=== PATIENT | male | born 1960 | race Two or more races ===

== ENCOUNTER → 2019-04-25 | Outpatient (CLI) | payer OTHER ==
--- NOTE | 2019-04-25 13:59 | REP ---
Chest x-ray: Two views. History: Wheezing. Cough. Findings: The lungs are symmetrically aerated. No focal infiltrate is seen. Pleural angles are sharp. Cardiomediastinal silhouette is unremarkable. There are degenerative changes in the thoracic spine. Impression: No active disease. Electronically Signed by Sha Montes MD 04/25/2019 01:51 P
== END ==
LOC: M LRY 13:13
PROVIDERS: ATTEND Physician Assistant
DX: M51.34 Other intervertebral disc degeneration, thoracic region (principal); R06.2 Wheezing; R05 Cough

== ENCOUNTER → 2021-11-07 | Outpatient (REF) | payer OTHER ==
[2021-11-07 17:14] LABS: BASO % 0.2 % (0.0-1.0); EOS % 0.2 % (0.0-3.0); HEMATOCRIT 38.7 % (42.0-52.0); HEMOGLOBIN 12.4 g/dl (13.5-17.5); LYMPH # 0.8 10^3/uL (1.5-5.0); LYMPH % 7.6 % (24.0-44.0); MEAN CORPUSCULAR HEMOGLOBIN 25.2 pg (27.0-33.0); MEAN CORPUSCULAR VOLUME 78.7 fl (80.0-96.0); MONO # 0.2 10^3/uL (0.0-0.8); MONO % 2.4 % (2.0-8.0); PLATELET COUNT, AUTOMATED 236 10^3/uL (150-450); RED BLOOD COUNT 4.92 10^6/uL (4.30-6.10); WHITE BLOOD COUNT 10.1 10^3/uL (4.0-10.0)
[2021-11-07 18:22] LABS: ERYTHROCYTE SEDIMENTATION RATE 16 mm/hr (0-20)
[2021-11-07 19:27] LABS: ALBUMIN 3.1 GM/DL (3.2-5.2); ALT/SGPT 35 U/L (12-78); BILIRUBIN,TOTAL 0.3 MG/DL (0.2-1.0); BLOOD UREA NITROGEN 36 MG/DL (7-18); C REACTIVE PROTEIN QUANTITATIV 1.11 MG/DL (0.00-0.30); CARBON DIOXIDE LEVEL 28 MEQ/L (21-32); CHLORIDE LEVEL 100 MEQ/L (98-107); CREATININE FOR GFR 1.45 MG/DL (0.70-1.30); GLOMERULAR FILTRATION RATE 52.7 (>49); GLUCOSE, FASTING 372 MG/DL (70-100); POTASSIUM SERUM 4.5 MEQ/L (3.5-5.1); SODIUM LEVEL 135 MEQ/L (136-145); TOTAL PROTEIN 6.7 GM/DL (6.4-8.2)
[2021-11-07 20:20] LABS: TOTAL 25(OH) VITAMIN D 15.9 NG/ML (30.0-100.0)
[2021-11-07 20:31] LABS: HEPATITIS B SURFACE ANTIGEN NEGATIVE (NEGATIVE)
[2021-11-07 20:58] LABS: HEPATITIS B CORE ANTIBODY IGM NEGATIVE (NEGATIVE); HEPATITIS C VIRUS ABY INDEX < 0.0 INDEX (<0.8)
[2021-11-10 15:07] LABS: ANGIOTENSIN 1 CONVERTING ENZYM < 5 U/L (14-82); VITAMIN D 1,25 DIHYDROXY 37.4 pg/mL (24.8-81.5)
== END ==
LOC: M SFHCRHEU 14:10
PROVIDERS: ATTEND Internal Medicine Rheumatology
DX: M35.3 Polymyalgia rheumatica (principal); R76.8 Other specified abnormal immunological findings in serum; Z79.52 Long term (current) use of systemic steroids